=== PATIENT | female | born 1955 | race Caucasian/White ===

== ENCOUNTER 2021-04-29 12:21 | Emergency (ER) | payer MEDICARE, OTHER, SELFPAY ==
[2021-04-29 12:36] VITALS: BP 120/57; PULSE 79; RESP 16; TEMP 36.2; O2SAT 100
--- NOTE | 2021-04-29 12:52 | ED.SKABFB ---
HPI - Skin/Abscess/Foreign Bdy General Chief complaint: Extremity Problem,Nontraumatic Stated complaint: Left Arm Swelling Time Seen by Provider: 04/29/21 12:46 Source: patient and RN notes reviewed Mode of arrival: ambulatory Limitations: no limitations History of Present Illness HPI narrative: 65-year-old female presents to the [facility] with left forearm redness, swelling and increased warmth since yesterday. Believes she was stung/bit by an insect or spider. States that she was working on the basement day prior. Has tried taking Benadryl and icing the area and states it just keeps getting more itchy, red and swollen. Has full range of motion of the wrist. 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 Positive radial pulse States since the swelling started she has had intermittent tingling at the tip of her thumb. Related Data Allergies Allergy/AdvReac Type Severity Reaction Status Date / Time No Known Allergies Allergy Verified 04/29/21 13:06 Review of Systems Review of Systems: All systems reviewed & are unremarkable except as noted in HPI and below Constitutional: Constitutional: Reports no additional constitutional complaints Eyes: Eyes: Reports no additional eye complaints Cardiovascular: Cardiovascular: Reports no additional cardiovascular complaints Respiratory: Respiratory: Reports no additional respiratory complaints Musculoskeletal: Musculoskeletal: Reports no additional musculoskeletal complaints Integumentary/Breasts: Skin/Breast: Reports as per HPI and Reports erythema (Left forearm) Neurologic: Reports system reviewed and no additional complaints, except as documented Psychiatric: Psychiatric: Reports no additional psychiatric complaints Allergic/Immunologic: Allergic/Immunologic: Reports no additional allergic/immunologic complaints PMFSH Past Medical History Medical History (Updated 04/30/21 @ 15:58 by Diandra Khanna) No significant medical problems Comments At the time of my signature, I reviewed and agree with the nursing past medical, surgical, social, and family history. There is no relevant family history pertinent to the patient complaint. Exam Const: General: healthy appearing, no acute distress and alert Nutritional Appearance: well nourished Orientation/consciousness: patient oriented x3 Limitations: no limitations HENMT: Head: normal to inspection Neck: Neck: normal visual inspection, no lymphadenopathy and no meningeal signs Chest: Chest palpation & inspection: normal inspection of the chest Resp: Effort & Inspection: normal respiratory effort Auscultation: clear to auscultation bilaterally Cardio: Rate: regular rate Rhythm: regular rhythm Back/Spine/Pelvis: Back: no CVA tenderness Skin: Lesions: no lesions Rashes: no rashes Other: Left forearm redness, swelling and increased warmth noted to the dorsal aspect. Neuro: General: patient oriented x3, moves all extremities, no meningeal signs and no focal motor deficits Speech: normal speech Gait exam (Neuro): Normal gait present Extrem: General: normal to inspection and no pedal edema Psych: Appearance: grossly normal and well kempt Mental Status: mental status grossly normal Affect: normal affect Attitude: cooperative Thought content: Yes Normal thought content present Course Course Emergency Course: Discharge instructions reviewed with patient, as well as provided in writing per nursing staff. The instructions also include specific and strict return/GO TO THE ER as well as f/u information. All questions have been answered, and the patient deny any further questions with discharge and discharge plan. Vital Signs Vital signs: Vital Signs Temperature 97.2 F L 04/29/21 12:36 Pulse Rate 79 04/29/21 12:36 Respiratory Rate 16 04/29/21 12:36 Blood Pressure 120/57 L 04/29/21 12:36 Pulse Oximetry 100 04/29/21 12:36 Temperature 97.2 F L 04/29/21 12:36 Pulse Rate 79 04/29/21 12:36 Respiratory Rate 16 04/29/21 12:36
== END 2021-04-29 13:09 | disposition home or self-care (01) ==
PROVIDERS: Emergency Provider Nurse Practitioner; PCP Family Medicine
DX: L03.114 Cellulitis of left upper limb (principal)
CPT/HCPCS: 99213; G0463